=== PATIENT | female | born 1980 | race Caucasian/White ===

== ENCOUNTER 2017-07-02 13:28 | Emergency (ER) | payer OTHER ==
[2017-07-02 14:33] VITALS: BP 143/75
--- NOTE | 2017-07-02 15:37 | UC ---
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---she knows that he sees other women---today some vaginal discharge and odor - History Of Current Complaint Chief Complaint: UCGU Stated Complaint: PERSONAL Time Seen by Provider: 07/02/17 15:09 Hx Obtained From: Patient Hx Last Menstrual Period: 07/02/17 ?: No Onset/Duration: Gradual Onset, Lasting Days Timing: Constant Severity Initially: Mild Severity Currently: Mild Character: Burning Aggravating Factor(s): [place] Alleviating Factor(s): Position Associated Signs And Symptoms: Positive: Vaginal Bleeding/Discharge Related Hx: - 5, Para - 2 - Allergies/Home Medications Allergies/Adverse Reactions: Allergies Allergy/AdvReac Type Severity Reaction Status Date / Time ENVIROMENTAL Allergy Unknown Unknown Uncoded 07/02/17 14:21 Reaction Details Home Medications: Home Medications diPHENhydraMINE PO* [Benadryl PO 25 MG TAB*] 25 mg PO BEDTIME PRN 07/02/17 [ History Confirmed 07/02/17] hydrOXYzine HCL TAB* [Atarax 10 MG TAB*] 10 mg PO BID 07/02/17 [History Confirmed 07/02/17] PMH/Surg Hx/FS Hx/Imm Hx Previously Healthy: No - learning disabilities Psychological History: Anxiety, Depression Other History Of: Negative For: HIV - Surgical History Surgical History: Yes Surgery Procedure, Year, and Place: breast reduction. Tubal ligation. D&C - Family History Known Family History: Positive: None - Social History Occupation: Disabled Lives: Alone Alcohol Use: None Substance Use Type: None Smoking Status (MU): Current Some Day Smoker Type: Cigarettes Have You Smoked in the Last Year: No Review of Systems Constitutional: Fatigue Skin: Negative Eyes: Negative ENT: Negative Respiratory: Negative Cardiovascular: Negative Gastrointestinal: Negative Genitourinary: Dysuria, Vaginal/Penile Burning, Vaginal/Penile Discharge Motor: Negative Neurovascular: Negative Musculoskeletal: Negative Neurological: Negative Psychological: Negative Is Patient Immunocompromised?: No All Other Systems Reviewed And Are Negative: Yes Physical Exam Triage Information Reviewed: Yes Appearance: Well-Appearing, No Pain Distress, Well-Nourished Vital Signs: Initial Vital Signs Temp 98.1 F 07/02/17 14:23 Pulse 76 07/02/17 14:23 Resp 18 07/02/17 14:23 BP 143/75 07/02/17 14:23 Pulse Ox 99 07/02/17 14:23 Vital Signs Reviewed: Yes Eye Exam: Normal Eyes: Positive: Conjunctiva Clear ENT Exam: Normal ENT: Positive: Normal ENT inspection, Hearing grossly normal. Negative: Trismus , Muffled voice, Hoarse voice, Dental tenderness Dental Exam: Normal Neck exam: Normal Neck: Positive: Supple, Nontender, No Lymphadenopathy Respiratory Exam: Normal Respiratory: Positive: Chest non-tender, Lungs clear, Normal breath sounds, No respiratory distress, No accessory muscle use Cardiovascular Exam: Normal Cardiovascular: Positive: RRR, No Murmur, Pulses Normal, Brisk Capillary Refill Musculoskeletal Exam: Normal Musculoskeletal: Positive: Strength Intact, ROM Intact, No Edema Neurological Exam: Normal Neurological: Positive: Alert, Muscle Tone Normal Psychological Exam: Normal Skin Exam: Normal Complaint Female Dx - Course Course Of Treatment: Flagyl with zofran, affirm and apptima swab. Follow with pcp return if needed - Differential Dx/Diagnosis Provider Diagnoses: Bacterial Vaginosis Discharge - Discharge Plan Condition: Stable Disposition: HOME Prescriptions: Metronidazole [Flagyl 500 MG TAB] 500 mg PO BID #12 tab Metronidazole [Flagyl 500 MG TAB] 500 mg PO BID #12 tab Ondansetron ODT TAB* [Zofran 4 MG Odt TAB*] 4 mg PO Q8H PRN #8 tab.odt PRN Reason: nausea Ondansetron ODT TAB* [Zofran 4 MG Odt TAB*] 4 mg PO Q8H PRN #8 tab.odt PRN Reason: Nausea Patient Education Materials: Bacterial Vaginosis (ED), Hypertension (ED) Referrals: Miriam Guthrie MD [Primary Care Provider] - Carmela Perrin NP [Nurse Practitioner] - 5 Days
[2017-07-02] MEDS ORDERED: metroNIDAZOLE TAB* 250 MG PO ONE ×3 (15:45→15:52)
[2017-07-02] MEDS ORDERED: Ondansetron ODT TAB* 4 MG PO ONE ×2 (15:45→15:53)
[2017-07-03 14:21] LABS: Trichomonas Source Endocervical (Negative)
== END 2017-07-02 16:07 | disposition home or self-care (01) ==
LOC: UCCORT 13:28
DX: N76.0 Acute vaginitis (principal); Z32.02 Encounter for pregnancy test, result negative; F41.9 Anxiety disorder, unspecified; F32.9 Major depressive disorder, single episode, unspecified; F81.9 Developmental disorder of scholastic skills, unspecified; Z72.0 Tobacco use
CPT/HCPCS: 81003; 84702; 87480; 87491; 87510; 87591; 87661; 99213; A9270-GY; G0463

== ENCOUNTER 2018-03-19 16:13 | Emergency (ER) | payer OTHER ==
[2018-03-19 16:45] VITALS: BP 120/80
--- NOTE | 2018-03-19 17:05 | UC ---
Complaint Female HPI - HPI Summary HPI Summary: Pt presents with c/o of vaginal itching and burning with urination and odiferous swell from vaginal area. denies unusual discharge. Pt reports that she is sexually active and does not always use condoms. - History Of Current Complaint Chief Complaint: UCGeneralIllness Stated Complaint: PERSONAL Time Seen by Provider: 03/19/18 16:40 Hx Obtained From: Patient Hx Last Menstrual Period: ended 03/17/18 ?: No Onset/Duration: Sudden Onset, Lasting Days, Still Present Timing: Constant Severity Initially: Mild Severity Currently: Mild Pain Intensity: 8 Character: Dull, Burning Aggravating Factor(s): Urination - Risk Factors Ectopic Risk Factor: Negative Ovarian Torsion Risk Factor: Tubal Ligation - Allergies/Home Medications Allergies/Adverse Reactions: Allergies Allergy/AdvReac Type Severity Reaction Status Date / Time ENVIROMENTAL Allergy Unknown Unknown Uncoded 03/19/18 16:31 Reaction Details PMH/Surg Hx/FS Hx/Imm Hx Previously Healthy: Yes Other History Of: Negative For: HIV - Surgical History Surgical History: Yes Surgery Procedure, Year, and Place: breast reduction. Tubal ligation. D&C - Family History Known Family History: Positive: Cardiac Disease - Social History Occupation: Employed Full-time Lives: With Family Alcohol Use: None Substance Use Type: None Smoking Status (MU): Former Smoker Type: Cigarettes Have You Smoked in the Last Year: No - Immunization History Most Recent Tetanus Shot: unsure Review of Systems Constitutional: Negative Skin: Negative Eyes: Negative ENT: Negative Respiratory: Negative Cardiovascular: Negative Gastrointestinal: Negative Genitourinary: Vaginal/Penile Burning, Vaginal/Penile Itching, Other - odor vaginal area Motor: Negative Neurovascular: Negative Musculoskeletal: Negative Neurological: Negative Psychological: Negative Is Patient Immunocompromised?: No All Other Systems Reviewed And Are Negative: Yes Physical Exam Triage Information Reviewed: Yes Appearance: Well-Appearing Vital Signs: Initial Vital Signs Temp 98.8 F 03/19/18 16:32 Pulse 81 03/19/18 16:32 Resp 16 03/19/18 16:32 BP 120/80 03/19/18 16:32 Pulse Ox 98 03/19/18 16:32 Vital Signs Reviewed: Yes Eye Exam: Normal ENT: Positive: Hearing grossly normal Dental Exam: Normal Neck exam: Normal Respiratory Exam: Normal Respiratory: Positive: No respiratory distress Cardiovascular Exam: Normal Abdominal Exam: Normal Abdomen Description: Positive: Nontender Musculoskeletal Exam: Normal Neurological Exam: Normal Psychological Exam: Normal Complaint Female Dx - Differential Dx/Diagnosis Differential Diagnosis/HQI/PQRI: Sexually Transmitted Disease, Urinary Tract Infection Provider Diagnoses: vaginitis Discharge - Sign-Out/Discharge Documenting (check all that apply): Patient Departure - Discharge Plan Condition: Stable Disposition: HOME Prescriptions: metroNIDAZOLE VAGINAL 0.75%* 1 applic VAGINAL BEDTIME #5 tube Ondansetron ODT TAB* [Zofran 4 MG Odt TAB*] 4 mg PO Q8H PRN #15 tab.odt PRN Reason: Nausea Patient Education Materials: Vaginitis (ED) Referrals: Miriam Guthrie MD [Primary Care Provider] - If Needed - Billing Disposition and Condition Condition: STABLE Disposition: Home
--- NOTE | 2018-03-21 07:15 | UC ---
- Progress Note Progress Note: + Gardnerella, cont. with Flagyl + Gini : will ERx Diflucan 150 mg po x 1 Discharge - Sign-Out/Discharge Documenting (check all that apply): Patient Departure All imaging exams completed and their final reports reviewed: No Studies - Discharge Plan Condition: Stable Disposition: HOME Prescriptions: Fluconazole [Diflucan 150 MG (NF)] 150 mg PO ONCE #1 tab metroNIDAZOLE VAGINAL 0.75%* 1 applic VAGINAL BEDTIME #5 tube Ondansetron ODT TAB* [Zofran 4 MG Odt TAB*] 4 mg PO Q8H PRN #15 tab.odt PRN Reason: Nausea Patient Education Materials: Vaginitis (ED) Referrals: Miriam Guthrie MD [Primary Care Provider] - If Needed - Billing Disposition and Condition Condition: STABLE Disposition: Home
== END 2018-03-19 17:20 | disposition home or self-care (01) ==
LOC: UCCORT 16:13
DX: B37.3 Candidiasis of vulva and vagina (principal); N76.0 Acute vaginitis; B96.89 Other specified bacterial agents as the cause of diseases classified elsewhere; Z87.891 Personal history of nicotine dependence
CPT/HCPCS: 81003; 87480; 87491; 87510; 87591; 87660; 99212; G0463

== ENCOUNTER 2019-08-06 18:41 | Emergency (ER) | payer OTHER ==
[2019-08-06 19:25] VITALS: BP 120/60
[2019-08-06] MEDS ORDERED: Oseltamivir CAP* 75 MG CAP PO ONE (20:14)
--- NOTE | 2019-08-06 20:16 | UC ---
Respiratory Complaint HPI - HPI Summary HPI Summary: 39-year-old female presents with complaints of sore throat, sinus pressure, nasal congestion, diffuse body aches as well as nonproductive cough. She states her significant other had his mother visited recently about 3 days ago who was diagnosed positive for influenza. Patient states exertion worsening symptoms. Nothing improves symptoms. She denies any chest pains or shortness of breath. - History of Current Complaint Chief Complaint: UCGeneralIllness Stated Complaint: CONGESTION,ST Time Seen by Provider: 08/06/19 19:57 Hx Obtained From: Patient Hx Last Menstrual Period: end of 07/2019 Pain Intensity: 0 Character: Cough: Nonproductive - Allergies/Home Medications Allergies/Adverse Reactions: Allergies Allergy/AdvReac Type Severity Reaction Status Date / Time ENVIROMENTAL Allergy Unknown Unknown Uncoded 08/06/19 19:24 Reaction Details Home Medications: Home Medications Cetirizine* [ZyrTEC 10 MG TAB*] 10 mg PO BEDTIME 08/06/19 [History Confirmed 01/18] Escitalopram * [Lexapro 10 mg (NF)] 10 mg PO BEDTIME 08/06/19 [History Confirmed 08/06/19] Melatonin [Ra Melatonin] 10 mg PO BEDTIME 08/06/19 [History Confirmed 08/06/19] hydrOXYzine HCL TAB* [Atarax 25 MG TAB*] 2 tab PO BEDTIME PRN 08/06/19 [History Confirmed 08/06/19] PMH/Surg Hx/FS Hx/Imm Hx Previously Healthy: Yes Psychological History: Depression Other History Of: Negative For: HIV - Surgical History Surgical History: Yes Surgery Procedure, Year, and Place: breast reduction. Tubal ligation. D&C - Family History Known Family History: Positive: Cardiac Disease - Social History Alcohol Use: None Substance Use Type: None Smoking Status (MU): Former Smoker Type: Cigarettes Have You Smoked in the Last Year: No - Immunization History Most Recent Tetanus Shot: unsure Review of Systems All Other Systems Reviewed And Are Negative: Yes Constitutional: Positive: Chills, Fatigue ENT: Positive: Sore Throat, Ear Ache, Nasal Discharge, Sinus Congestion, Sinus Pain/Tenderness Respiratory: Positive: Cough Musculoskeletal: Positive: Myalgia Is Patient Immunocompromised?: No Physical Exam Triage Information Reviewed: Yes Appearance: Well-Appearing, No Pain Distress, Well-Nourished Vital Signs: Initial Vital Signs Temp 97.8 F 08/06/19 19:20 Pulse 83 08/06/19 19:20 Resp 17 08/06/19 19:20 BP 120/60 08/06/19 19:20 Pulse Ox 100 08/06/19 19:20 Eye Exam: Normal ENT Exam: Normal ENT: Positive: Nasal congestion, Nasal drainage - Clear, TM dull, Sinus tenderness Dental Exam: Normal Neck exam: Normal Neck: Positive: 1 Respiratory Exam: Normal Cardiovascular Exam: Normal Musculoskeletal Exam: Normal Neurological Exam: Normal Psychological Exam: Normal Skin Exam: Normal Respiratory Course/Dx - Course Course Of Treatment: patient with viral illness about 24 hours with exposure to influenza. We discussed treatment and conservative care. She would like to start Tamiflu face that her exposure and symptoms. Given first dose here today. She is aware and agreeable to plan as well as the side effects of medication. She denies any excessive shortness breath or chest pain. Stable. Physical exam normal. If symptoms worsen emergency room. She is aware and agreeable to that plan. Follow-up with her PCP and to 3 days. - Differential Dx/Diagnosis Differential Diagnosis/HQI/PQRI: Bronchitis, Influenza, Laryngitis, Lower Resp Infection, Sinusitis Provider Diagnosis: Influenza Discharge ED - Sign-Out/Discharge Documenting (check all that apply): Patient Departure All imaging exams completed and their final reports reviewed: No Studies - Discharge Plan Condition: Good Disposition: HOME Prescriptions: Benzonatate CAP* [Tessalon 100 MG CAP*] 100 mg PO TID PRN #20 cap PRN Reason: Cough Fluticasone NASAL SPRAY 50MCG* [Flonase NASAL SPRAY 50MCG*] 2 spray BOTH NARES DAILY #1 btl Oseltamivir CAP* [Tamiflu CAP*] 75 mg PO BID #10 cap Pseudoephedrine HCl [Sudafed] 30 mg PO BID PRN #10 tablet PRN Reason: nasal congestion Patient Education Materials: Influenza (ED) Referrals: No Primary Care Phys,NOPCP [Primary Care Provider] - - Billing Disposition and Condition Condition: GOOD Disposition: Home
== END 2019-08-06 20:33 | disposition home or self-care (01) ==
LOC: UCCORT 18:41
DX: J11.1 Influenza due to unidentified influenza virus with other respiratory manifestations (principal); F32.9 Major depressive disorder, single episode, unspecified; Z91.09 Other allergy status, other than to drugs and biological substances; Z79.899 Other long term (current) drug therapy; Z87.891 Personal history of nicotine dependence
CPT/HCPCS: 99212; A9270-GY; G0463